=== PATIENT | female | born 1955 | race Caucasian/White ===

== ENCOUNTER → 2024-02-20 | Outpatient (CLI) | payer MEDICARE, OTHER ==
[~2024-02-20] MED LIST: ASPIRIN E.C. 8181 MG PO; BENICAR HCT 12.1 TAB PO; CALCIUM CARBON600 M1 PO; FISH OIL1 IU PO; MULTIVITAMIN1 SGL PO; PRILOSEC40 M1 PO; ULTRAM50 M1 PO; VYTORIN
== END ==
LOC: MAMMO 12:50
DX: Z12.31 Encounter for screening mammogram for malignant neoplasm of breast (principal)